=== PATIENT | female | born 1995 | race African-American/Black ===

== ENCOUNTER 2021-03-01 13:24 | Emergency (ER) | payer OTHER | END 2021-03-01 15:10 | disposition home or self-care (01) | LOC: ERS 13:24 | DX: L02.415 Cutaneous abscess of right lower limb (principal) | CPT/HCPCS: 99282 ==

== ENCOUNTER 2023-11-27 06:46 | Inpatient (IN) | payer BC ==
[2023-11-27 07:27] LABS: #Basophils Less than 0.03 10x3/uL (0.0-0.2); %Basophils 0.2 % (0.0-1.0); %Eosinophils 0.9 % (0.0-10.0); %Monocytes 4.5 % (0.0-10.0); %Neutrophils 81.1 % (42.0-75.0); Hematocrit 38.3 % (36.0-47.0); Hemoglobin 13.1 g/dL (12.0-16.0); Mean Corpuscular HGB CONC 34.2 g/dL (32.0-36.0); Mean Corpuscular Hemoglobin 26.8 pg (27.0-31.0); Mean Corpuscular Volume 78.3 fL (78.0-98.0); Mean Platelet Volume 8.6 fL (7.4-10.4); Platelet Count 256 10x3/uL (130-400); RBC Distribution Width 14.2 % (11.5-14.5); Red Blood Cell (RBC) Count 4.89 mill/uL (4.20-5.40)
[2023-11-27 07:40] LABS: BHCG - Serum Negative (NEGATIVE); Pregs Control Background? CLEAR/WHITE (CLR/WHITE); Pregs Control Bar Appear? YES (CONTROL BAR)
[2023-11-27 07:48] LABS: ALT (SGPT) 9 U/L (8-55); AST (SGOT) 16 U/L (5-34); Albumin 3.6 g/dL (3.5-5.0); Alkaline Phosphatase 53 U/L (40-110); Anion Gap 16 mmol/L (10-20); BUN (Urea Nitrogen) 9 mg/dL (7.0-18.7); Bilirubin, Total 0.5 mg/dL (0.2-1.2); Calc. Creatinine Clearance 0 mL/min (70-130); Calcium 8.8 mg/dL (7.8-10.44); Carbon Dioxide 19 mmol/L (22-29); Chloride 109 mmol/L (98-107); Estimated GFR 121; Globulin 3.2 g/dL (2.4-3.5); Glucose 85 mg/dL (70-105); Magnesium 1.8 mg/dL (1.6-2.6); Potassium 3.8 mmol/L (3.5-5.1); Protein, Total 6.8 g/dL (6.0-8.3); Sodium 140 mmol/L (136-145)
[2023-11-27 07:52] LABS: Troponin I Less than 0.010 ng/mL (< 0.028)
[2023-11-27] MEDS ORDERED: diphenhydrAMINE 50 MG/ML VIAL ONE (07:53)
[2023-11-27] MEDS ORDERED: Prochlorperazine 10 MG/2 ML VIAL ONE (07:53)
[2023-11-27] MEDS ORDERED: Aspirin 81 mg Enteric Coated Tablet ONE ×2 (09:36→09:43)
[2023-11-27] MEDS ORDERED: Acetaminophen 650 MG Suppository PR PRN (10:25)
[2023-11-27] MEDS ORDERED: traMADol HCl 50 MG TAB PO PRN ×2 (10:25)
[2023-11-27] MEDS ORDERED: Ondansetron ODT 4 MG TAB PO PRN (10:25)
[2023-11-27] MEDS ORDERED: Ondansetron PF 4 MG/2 ML Vial IVP PRN (10:25)
[2023-11-27] MEDS: Sodium Chloride 0.9% 1,000 ML IV SCH (12:37)
[2023-11-27 13:43] LABS: Troponin I Less than 0.010 ng/mL (< 0.028)
[2023-11-27 16:15] VITALS: BMI 29.0
[2023-11-27 18:37] LABS: Troponin I Less than 0.010 ng/mL (< 0.028)
[2023-11-28 03:57] LABS: #Basophils Less than 0.03 10x3/uL (0.0-0.2); %Basophils 0.3 % (0.0-1.0); %Eosinophils 1.8 % (0.0-10.0); %Lymphocytes 29.2 % (21.0-51.0); %Monocytes 7.6 % (0.0-10.0); %Neutrophils 60.8 % (42.0-75.0); Hematocrit 34.1 % (36.0-47.0); Hemoglobin 11.6 g/dL (12.0-16.0); Mean Corpuscular Hemoglobin 26.3 pg (27.0-31.0); Mean Corpuscular Volume 77.3 fL (78.0-98.0); Mean Platelet Volume 8.6 fL (7.4-10.4); Platelet Count 216 10x3/uL (130-400); RBC Distribution Width 14.1 % (11.5-14.5); Red Blood Cell (RBC) Count 4.41 mill/uL (4.20-5.40)
[2023-11-28 04:37] LABS: Anion Gap 10 mmol/L (10-20); BUN (Urea Nitrogen) 7 mg/dL (7.0-18.7); Calc. Creatinine Clearance 148 mL/min (70-130); Calcium 7.8 mg/dL (7.8-10.44); Carbon Dioxide 19 mmol/L (22-29); Chloride 112 mmol/L (98-107); Estimated GFR 121; Glucose 83 mg/dL (70-105); Potassium 3.9 mmol/L (3.5-5.1); Sodium 137 mmol/L (136-145)
[2023-11-28] MEDS: Enoxaparin 40 MG (0.4 mL) SYRINGE SC SCH (08:26)
[2023-11-28] MEDS: Acetaminophen 325 MG TAB PO PRN (20:21)
[2023-11-29 12:42] VITALS: BP 141/82; TEMP 97.9
== END 2023-11-29 15:20 | disposition home or self-care (01) | DRG 312 ==
LOC: ERS 06:46 → SUATTDRO 06:46 → ERHOLD 10:11 → 2SW 15:05 → OBSVTOIN 11-28 10:15
PROVIDERS: ADMIT Family Medicine; ATTEND Family Medicine
DX: R55 Syncope and collapse (principal); R00.1 Bradycardia, unspecified; G43.909 Migraine, unspecified, not intractable, without status migrainosus; F17.210 Nicotine dependence, cigarettes, uncomplicated; F41.9 Anxiety disorder, unspecified; F32.A Depression, unspecified; F43.10 Post-traumatic stress disorder, unspecified; F12.10 Cannabis abuse, uncomplicated; Z88.0 Allergy status to penicillin; Z79.899 Other long term (current) drug therapy
CPT/HCPCS: 36415; 70450; 70553; 71045; 76377; 80048; 80053; 82533; 83735; 84146; 84443; 84484; 84703; 85025; 85379; 93005; 93306; 93880; 94760; 96361; 96365; 96375; J0780; J1200; J1650; J7050